=== PATIENT | female | born 1940 | race Caucasian/White ===

== ENCOUNTER → 2016-07-23 | Outpatient (CLI) | payer MEDICARE, BC ==
[~2016-07-23] MED LIST: ADVIL200 M2 PO; ADVIL200 M3 PO; ALBUTEROL MININEB; ALBUTEROL MININEB NEB; ALPRAZOLAM PO; ASPIRIN EC81 M1 PO; BACTRIM DS TABL1 TA1 PO; CEFTIN PO; COMBIVENT U/D3 M3 INH; DULERA 200 MCG/13 GM INH; HYDROCODON-ACE1 EAC9 PO; LEVAQUIN PO; LEVAQUIN750 M1 PO; MULTI VITAMIN1 EACH PO; MULTI-VITAMIN1 TAB PO; OMNICEF300 M1 PO; OXYGEN; PREDNISONE PO; PREDNISONE10 MG/DOSE PO; PROAIR HFA8.5 GM INH; PROAIR INH; REMERON15 MG PO; SPIRIVA18 MCG INH; VITAMIN A PO; VITAMIN C500 M1 PO; VITAMIN E PO; ZOLPIDEM TARTRAT5 M1 PO; ZOLPIDEM TARTRAT5 MG PO
--- NOTE | ~2016-07-23 | MY11 ---
[facility] A Service of [facility] & [facility] / [facility] RADIOLOGY TEXT RESULTS PATIENT: CHIKA MCDOWELL LOCATION: [facility] : 42 UNIT #: [id number] AGE: [address]: Amber Mathew MD SEX: F ORDER DR: [id number] [facility] [address] [facility] [facility]. [place], [place] [address] [id number] O MR#: [id number] Acc #: [id number] NAME: CHIKA MCDOWELL : 1940 SEX: F STUDY DATE/TIME: 07/23/2016 15:09 UNIT: [facility] ROOM: STUDY DESCRIPTION: MY Mammogram Screening Dig Cristóbal Attending Physician: Amber Mathew M.D. Ordering Physician: Amber Mathew M.D. Primary Care Physician: Amber Mathew M.D. MEDICAL IMAGING REPORT This report is preliminary unless electronic signature is present EXAM Bilateral digital screening mammogram with CAD, 07/23/2016 INDICATION 75-year-old female for routine screening. No reported problems and no personal or family history of breast cancer. No surgeries. TECHNIQUE CC and MLO views of the breast were obtained and reviewed with an FDA-approved CAD device. COMPARISON 11/29/2008, 01/02/2208, 12/20/2007 FINDINGS Breast parenchyma is composed of scattered fibroglandular densities. The pattern is unchanged. There are 2 new nodular densities in the 12 o'clock position left breast at middle third depth. 1 measures about 1.2 cm and the second immediately adjacent to the former measures 8.0 mm. These have slightly irregular margins and are associated with some faint calcifications, some of which appear new. Imaging findings are suspicious for malignancy. Suggest further evaluation with spot compression views in the CC and MLO projections and a true lateral view along with targeted ultrasound. There is an 8.0 mm nodular density in the posterior outer hemisphere right breast best seen on the CC projection. This is slightly larger than on comparison studies and should be further evaluated with spot compression and targeted ultrasound as well. A true lateral view on the right would also be helpful for localization purposes. IMPRESSION 1. Abnormal examination. There are 2 new mass-like densities in the STS. [facility] A Service of [facility] & [facility] / [facility] RADIOLOGY TEXT RESULTS PATIENT: CHIKA MCDOWELL LOCATION: [facility] : 42 UNIT #: [id number] AGE: [address]: Amber Mathew MD SEX: F ORDER DR: left breast at about 12 o'clock. This should be further evaluated with additional views and ultrasound as described above. They are suspicious for malignancy. 2. 8.0 mm nodular density in the posterior outer right breast. Additional views and targeted ultrasound also recommended for further assessment given slight interval enlargement compared to prior studies. Patients over the age of 40 are entered into a reminder system with target due date for the next mammogram. A result letter will also be sent to the patient. BIRADS 0 Incomplete: Need Additional Imaging Evaluation and/or Prior Mammograms for Comparison STAT * RESULT Dictated by... Nahid Padilla M.D. THIS IS AN ELECTRONICALLY VERIFIED REPORT Nahid Padilla M.D. at 07/24/2016 5:19 PM Perla TD: 07/24/2016 09:15 JOB #: [id number] MEDICAL IMAGING REPORT Page 1 of 1 COPY
== END | disposition home or self-care (01) ==
LOC: CWCC 15:02
DX: Z12.31 Encounter for screening mammogram for malignant neoplasm of breast (principal); R92.8 Other abnormal and inconclusive findings on diagnostic imaging of breast; N63 Unspecified lump in breast
CPT/HCPCS: G0202

== ENCOUNTER → 2016-08-14 | Outpatient (CLI) | payer MEDICARE, BC ==
--- NOTE | ~2016-08-14 | US17 ---
[facility] A Service of [facility] / [facility] RADIOLOGY TEXT RESULTS PATIENT: CHIKA MCDOWELL LOCATION: [facility] : 42 UNIT #: [id number] AGE: [address]: Amber Mathew MD SEX: F ORDER DR: [id number] [place] [id number] [facility] [place] [facility]. [place], [place] [address] [id number] O MR#: [id number] Acc #: [id number] NAME: CHIKA MCDOWELL : 1940 SEX: F STUDY DATE/TIME: 08/14/2016 13:07 UNIT: [facility] ROOM: STUDY DESCRIPTION: US Breast Bilateral Attending Physician: Amber Mathew M.D. Referring Physician: Amber Mathew M.D. Ordering Physician: Amber Mathew M.D. Primary Care Physician: Amber Mathew M.D. MEDICAL IMAGING REPORT This report is preliminary unless electronic signature is present EXAM Bilateral diagnostic breast ultrasound DATE 08/14/2016 HISTORY Nodular densities on each breast was included on the diagnostic mammogram for which ultrasound was recommended. COMPARISON Mild screening mammogram 07/23/2016. Bilateral diagnostic digital mammogram 08/14/2016. FINDINGS High-grade sonographic imaging was performed of the left breast in the superior hemisphere. At approximately 2 o'clock axis central third, a 2 cm macrolobulated slightly angulated solid appearing mass lesion is seen with areas of acoustic shadowing. Does not appear frankly hypervascular on color Doppler imaging. There is some echo reflectors or microcalcifications within it. Findings are highly suspicious for malignancy and correspond to mammographic finding. In the 9 o'clock axis of the right breast, a benign appearing 7 mm cyst is seen, thought to correspond to mammographic finding. No suspicious solid right breast mass is identified. IMPRESSION BIRADS category 4. Suspicious finding. There is a 2 cm mass in the 2 o'clock axis left breast central third which is highly suspicious for malignancy. Please refer to the diagnostic mammogram report from this same date for full description of mammographic and sonographic findings and recommendations. [facility] A Service of [facility] & [facility] RADIOLOGY TEXT RESULTS PATIENT: CHIKA MCDOWELL LOCATION: [facility] : 42 UNIT #: [id number] AGE: [address]: Amber Mathew MD SEX: F ORDER DR: FRANCISADS: 4 Suspicious abnormality; biopsy should be considered. Dictated by... Oxana Harden M.D. THIS IS AN ELECTRONICALLY VERIFIED REPORT Oxana Harden M.D. at 08/17/2016 8:32 AM JERICHO/lindsey TD: 08/14/2016 15:55 JOB #: [id number] MEDICAL IMAGING REPORT Page 1 of 1 COPY
--- NOTE | ~2016-08-14 | MY6 ---
[facility] A Service of [facility] & [facility] RADIOLOGY TEXT RESULTS PATIENT: CHIKA MCDOWELL LOCATION: [facility] : 42 UNIT #: [id number] AGE: [address]: Amber Mathew MD SEX: F ORDER DR: [id number] [place] [id number] [facility]. [place], [place] [address] [id number] O MR#: [id number] Acc #: [id number] NAME: CHIKA MCDOWELL : 1940 SEX: F STUDY DATE/TIME: 08/14/2016 12:29 UNIT: [facility] ROOM: STUDY DESCRIPTION: MY Mammogram Dx Dig Cristóbal Attending Physician: Amber Mathew M.D. Referring Physician: Amber Mathew M.D. Ordering Physician: Amber Mathew M.D. Primary Care Physician: Amber Mathew M.D. MEDICAL IMAGING REPORT This report is preliminary unless electronic signature is present EXAM Bilateral digital diagnostic mammogram with CAD DATE 08/14/2016 HISTORY Bilateral breast densities on previous screening mammogram FOR which additional diagnostic imaging was recommend. COMPARISON Bilateral screening mammogram 07/23/2016. FINDINGS True ML views obtained of each breast utilizing digital technique and reviewed with an FDA-approved CAD device. Additional extended craniocaudal lateral view was obtained of the right breast. Heterogeneously dense fibroglandular tissue is present bilaterally. Near the 1-2 o'clock axis in the left breast, there is a somewhat bilobed irregularly marginated increased density nodularity which becomes more conspicuous upon spot compression in the CC and MLO plane. Small calcifications are seen in the same vicinity. No additional nodules are identified. In the 9 o'clock axis right breast mid to posterior third, subcentimeter oval well-circumscribed nodule is present. It persists and becomes more conspicuous upon spot compression, but there is no associated architectural distortion or microcalcification. Targeted sonographic imaging was obtained of each breast for diagnostic purposes. In the 2 o'clock axis left breast central third, a microlobulated slightly angulated solid-appearing mass lesion is seen, [facility] A Service of [facility] & [facility] RADIOLOGY TEXT RESULTS PATIENT: CHIKA MCDOWELL LOCATION: [facility] : 42 UNIT #: [id number] AGE: [address]: Amber Mathew MD SEX: F ORDER DR: growing against soft tissue planes. It contains some internal echo reflectors likely representing microcalcifications. It does not appear frankly hypervascular on color Doppler imaging. It is highly suspicious for malignancy and corresponds to mammographic finding. Targeted sonographic imaging of the right breast in the 9 o'clock axis demonstrates a benign appearing 7 mm cyst. This is thought to correspond to the previous ultrasound from 01/02/2008, appears similar to that study. No additional or suspicious right breast nodules are identified. IMPRESSION 1. BIRADS 4. Suspicious abnormality. Biopsy recommended. There is a 2 cm solid mass in the 2 o'clock axis left breast central third which is highly suspicious for malignancy both mammographically and sonographically. It may be technically challenging for the patient to undergo ultrasound-guided core needle biopsy, as she has a difficult time lying down due to her COPD. Breast surgical consultation is recommended, for contemplation of initial surgical excision versus core needle biopsy. The patient is not on blood thinning agents at this time. Simple right breast cyst is noted, no findings suspicious malignancy in the right breast. 2. Findings and recommendations were discussed directly the patient in the presence of her caregiver. Both verbalized understanding. 3. I have personally contacted the it assistant working for Dr. Amber Mathew regarding the major pertinent findings today, 08/14/2016 at 01:37 p.m. Breast surgical consultation can be scheduled by the referring physician's office at the patient's convenience. BIRADS 4. Patients over the age of 40 are entered into a reminder system with target due date for the next mammogram. A result letter will also be sent to the patient. BIRADS: 4 - Suspicious abnormality - Biopsy should be considered Dictated by... Oxana Harden M.D. THIS IS AN ELECTRONICALLY VERIFIED REPORT Oxana Harden M.D. at 08/17/2016 8:32 AM JERICHO/mariola TD: 08/14/2016 15:53 JOB #: [id number] MEDICAL IMAGING REPORT Page 1 of 1 COPY
== END | disposition home or self-care (01) ==
LOC: CMAM 12:01
DX: R92.8 Other abnormal and inconclusive findings on diagnostic imaging of breast (principal); N63 Unspecified lump in breast
CPT/HCPCS: 76641; G0204

== ENCOUNTER → 2016-09-17 | Outpatient (CLI) | payer MEDICARE, BC ==
--- NOTE | ~2016-09-17 | EKG ---
PATIENT: CHIKA MCDOWELL UNIT #: [id number] Ventricular Rate: 76 BPM Atrial Rate: 76 BPM P-R Interval: 112 ms QRS Duration: 54 ms Q-T Interval: 378 ms QTC Calculation(Bezet): 425 ms P [place]: 5 degrees Calculated R [place]: -2 degrees Calculated T [place]: 9 degrees Diagnosis Line: Normal sinus rhythm Diagnosis Line: Normal ECG Diagnosis Line: When compared with ECG of 04-JUL-2015 10:38, Diagnosis Line: Nonspecific T wave abnormality now evident in Diagnosis Line: Inferior leads Diagnosis Line: Confirmed by JERRY MACEDO MD ([id number]) on Diagnosis Line: 09/18/2016 6:48:36 AM INTERPRETING RON FLOREZ
--- NOTE | ~2016-09-17 | CR63 ---
[facility] A Service of [facility] & [facility] / [facility] RADIOLOGY TEXT RESULTS PATIENT: CHIKA MCDOWELL LOCATION: [facility] : 42 UNIT #: [id number] AGE: [address]: Steve Corley MD SEX: F ORDER DR: [id number] [facility] [address] [place], [place] [address] [id number] O MR#: [id number] Acc #: [id number] NAME: CHIKA MCDOWELL : 1940 SEX: F STUDY DATE/TIME: 09/17/2016 14:57 UNIT: [facility] ROOM: STUDY DESCRIPTION: CR Chest 2 View Attending Physician: Steve Corley Jr., M.D. Ordering Physician: Steve Corley Jr., M.D. Primary Care Physician: Amber Mathew M.D. MEDICAL IMAGING REPORT This report is preliminary unless electronic signature is present EXAM Two view chest 09/17/2016. HISTORY A 75-year-old woman, preop clearance for left mastectomy. [place] node resection. COMPARISON STUDIES Chest 07/08/2015, chest CT 04/03/2015 FINDINGS Two-view chest exam demonstrates normal heart size. Aorta is mildly ectatic. Patient is rotated shifting the mediastinum from left to right. Lungs are hyperinflated. I see no infiltrates. There is a [place] hernia noted medial right posterior hemidiaphragm. IMPRESSION Generalized pulmonary hyperinflation consistent with COPD. [place] hernia in the right medial posterior hemithorax. No acute chest finding. Dictated by... Maykel Chadwick M.D. THIS IS AN ELECTRONICALLY VERIFIED REPORT Maykel Chadwick M.D. at 09/18/2016 11:59 AM ARAMIS/alex TD: 09/18/2016 11:37 JOB #: [id number] MEDICAL IMAGING REPORT Page 1 of 1 COPY
[2016-09-17 14:59] LABS: HEMATOCRIT 43.1 % (35.0-45.0); MEAN CORPUSCULAR HEMOGLOBIN 29.4 PG (28-34); MEAN CORPUSCULAR HGB CONC 32.6 g/dL (30-36); MEAN PLATELET VOLUME 8.8 FL (6.5-11.5); RED BLOOD COUNT 4.78 X10e (3.90-5.30); RED CELL DISTRIBUTION WIDTH 13.2 % (11.0-15.5); WHITE BLOOD COUNT 11.4 X10e3 (4.0-10.5)
[2016-09-17 15:20] LABS: BUN/CREATININE RATIO 17.5; CALCIUM SERUM 9.5 mg/dL (8.4-10.2); CREATININE SERUM 0.8 mg/dL (0.6-1.4); GLOM FILT RATE Estimated 73.2 mL/min (>60); POTASSIUM 4.2 mmol/L (3.5-5.1)
== END | disposition home or self-care (01) ==
LOC: CAMB 13:36
PROVIDERS: Surgery
DX: Z01.818 Encounter for other preprocedural examination (principal); R91.8 Other nonspecific abnormal finding of lung field
CPT/HCPCS: 36415; 71020; 80048; 85027; 93005

== ENCOUNTER 2016-09-24 09:29 | Inpatient (IN) | payer MEDICARE, BC ==
--- NOTE | ~2016-09-24 | CO ---
Unit #: [id number] #: [id number] Patient: CHIKA MCDOWELL [id number] [address] [place], [place] [address] [id number] I MR#: [id number] NAME: CHIKA MCDOWELL ROOM: 474 Age: 76 Sex: F Admission Date: 09/24/2016 : 1940 Attending Physician: Steve Corley Jr., M.D. Primary Care Physician: Amber Mathew M.D. Requesting Physician: Steve Corley Jr., M.D. CONSULTATION REPORT HISTORY OF PRESENT ILLNESS Ms. Mcdowell is a 75-year-old female with stage 2 COPD who presented for elective left mastectomy. This was done on September 24, 2016. She was not on the ventilator postop. She apparently was noted to have some shortness of breath and maybe even a little bit of stridor today. Her is in the room and says that she gets a little short of breath and has some wheezing when she gets up and moves around She had a "dry cough" preop. She was not breathing any worse than normal preop. She uses Dulera or Symbicort b.i.d., and she uses mini-nebs four times a day scheduled. She has not smoked in about seven to eight years. PAST MEDICAL HISTORY 1. Otherwise significant for her COPD. Back in 2014, FEV1 was 1.03 or 52% of predicted. A CAT scan in the past has shown emphysema changes. 2. History of cognition issues and aphasia. This has actually been going on since about 2014, and she has seen a neurologist for this. 3. Hyperlipidemia. 4. Insomnia. MEDICATIONS ON ADMISSION 1. Spiriva 1 capsule inhaled daily. 2. Dulera 200/5 at 2 puffs b.i.d. 3. Multivitamins daily. 4. Vitamin C 500 mg daily. 5. Albuterol mini-nebs q.i.d., although they told me it was DuoNebs. 6. ProAir 2 puffs q.i.d. p.r.n. 7. Remeron 15 mg p.o. at bedtime. 8. Aspirin 81 mg p.o. daily. 9. Vitamin A 8000 units daily. 10. Vitamin E daily. 11. Oxygen. She was wearing it 2 L almost all the time at home. ALLERGIES No known drug allergies. SOCIAL HISTORY She did smoke, but she quit approximately seven to eight years ago. FAMILY HISTORY Nobody with lung disease. REVIEW OF SYSTEMS She has had some trouble with speaking for a long time. She has generalized weakness. She does have a little trouble with balance Unit #: [id number] #: [id number] Patient: CHIKA MCDOWELL according to her . No leg swelling and no skin complaints. All other systems are negative except as mentioned. PHYSICAL EXAMINATION GENERAL: On exam, she presents as an elderly female in no acute distress. VITAL SIGNS: Temperature is 98.5, pulse 83, respirations 18, blood pressure 159/79, and saturations 99% on 2 L nasal cannula. NECK: Without adenopathy. LUNGS: Breathing is not labored. She had clear breath sounds bilaterally. HEART: Regular. ABDOMEN: Soft. Bowel sounds are present. EXTREMITIES: Without edema. NEUROLOGICALLY: She is awake and alert. She has a little bit of dysarthria which is not unusual for her. SKIN: Evaluation reveals that she does have a bandage around her chest. I did not take it off to look at her surgical wound. DIAGNOSTIC STUDIES LABORATORY: Blood gas was done on 2 L with a pH of 7.46, PCO2 of 42, and PO2 of 75. Serum chemistries show BUN 14, creatinine 0.8, and glucose 121. White blood cell count 8.9, hemoglobin and hematocrit 10.8 and 33, and 257,000 platelets. IMAGING: Chest x-ray to my exam reveals some increased interstitial markings in general, but I really did not see any definite infiltrate. IMPRESSION 1. Chronic obstructive pulmonary disease actually stable postoperatively. 2. Postoperative for a left mastectomy. 3. History of some type of neurologic issue that I am not sure we have a good diagnosis for. PLAN I would continue mini-nebs scheduled postop, although probably at home she can use the mini-nebs more on an as-needed basis. I would indeed continue the Dulera. If she does not have stridor at this time, two liters is more than adequate. Thank you very much for allowing me to participate in the care of this patient. Dictated by... Honorio ArndtK/am TD: 09/27/2016 14:56 JOB #: [id number] Unit #: [id number] #: [id number] Patient: CHIKA MCDOWELL Brian CONSULTATION REPORT Page 1 of 1 X Arben Vaughn MD CONSULTATION REPORT
--- NOTE | ~2016-09-24 | CR63 ---
[facility] A Service of [facility] RADIOLOGY TEXT RESULTS PATIENT: CHIKA MCDOWELL LOCATION: [facility] : 42 UNIT #: [id number] AGE: [address]: Steve Corley MD SEX: F ORDER DR: [id number] [facility] [address] [facility] [place], [place] [address] [id number] I MR#: [id number] Acc #: [id number] NAME: CHIKA MCDOWELL. : 1940 SEX: F STUDY DATE/TIME: 09/26/2016 9:12 UNIT: [facility] ROOM: [facility] STUDY DESCRIPTION: CR Chest 2 View Attending Physician: Steve Corley Jr., M.D. Ordering Physician: Steve Corley Jr., M.D. Primary Care Physician: Amber Mathew M.D. MEDICAL IMAGING REPORT This report is preliminary unless electronic signature is present EXAM Two-view chest, 09/26/2016. INDICATIONS 76-year-old female with shortness of air. Breast cancer. Left-sided breast cancer. Symptoms began today. Hypertension. TECHNIQUE Frontal chest compared with 09/17/2016. FINDINGS The patient has rotated to the right. Operative changes of left mastectomy are present. There are radiopaque drains projecting over the left hemithorax. Cardiac silhouette borderline in size. There is pulmonary hyperinflation. Probable atelectasis or less likely faint infiltrate in the right lung base. No pneumothorax. No significant effusion. IMPRESSION 1. Faint atelectasis or infiltrate in the right lung base. Underlying COPD. Postop changes of left mastectomy. Dictated by... Nahid Padilla M.D. THIS IS AN ELECTRONICALLY VERIFIED REPORT Nahid Padilla M.D. at 09/27/2016 8:44 AM Hank TD: 09/26/2016 21:01 JOB #: [id number] [facility] A Service of [facility] RADIOLOGY TEXT RESULTS PATIENT: CHIKA MCDOWELL LOCATION: [facility] 474- : 42 UNIT #: [id number] AGE: [address]: Steve Corley MD SEX: F ORDER DR: MEDICAL IMAGING REPORT Page 1 of 1 COPY
--- NOTE | ~2016-09-24 | DS ---
Unit #: [id number] #: [id number] Patient: CHIKA MCDOWELL [id number] [address] [place], [place] [address] [id number] I MR#: [id number] NAME: CHIKA MCDOWELL ROOM: [facility] Age: 76 Sex: F Admission Date: 09/24/2016 : 1940 Discharge Date: 09/27/2016 Attending Physician: Steve Corley Jr., M.D. Primary Care Physician: Amber Mathew M.D. DISCHARGE SUMMARY ADMITTING AND FINAL DIAGNOSES 1. Adenocarcinoma of the left breast. 2. Status post cerebrovascular accident with an expressive aphasia. 3. Also chronic obstructive pulmonary disease and postop pulmonary congestion. BRIEF SUMMARY The patient is a 76-year-old white female who recently had a needle biopsy of the left breast of mass that showed evidence of adenocarcinoma. She was brought in at this time for mastectomy with [place] node biopsy. Exam reveals a small mass palpable in the 12 o'clock position on the left breast. There were no palpable axillary enlarged lymph nodes. She does have an expressive aphasia from previous CVA. Admission laboratory values basically within normal limits. HOSPITAL COURSE The patient was brought in and underwent left mastectomy with [place] node biopsy. At present her pathology report is still pending. She did have some pulmonary congestion and was seen by Dr. Vaughn postop and treated with mini-nebs and appropriate oral medications and inhalers. At present, she has no pulmonary problems noted. She is tolerating a diet, ambulating. Wound is clean and healing well with no evidence of any problem with the flaps. Drains have been draining approximately 70 to 100 mL over the past 24 hours. The plan will be to discharge the patient home. She did drop her hemoglobin in the range of 10.5 but that has been steady with no evidence of any further drop of her hemoglobin. DISCHARGE MEDICATIONS 1. She will resume all of her home medications. 2. Taking [place] 7.5 mg/325 one or two p.o. q.6 h. p.r.n. pain. 3. She will be taking pulmonary meds per Dr. Vaughn. 4. Will have her on Levaquin 500 mg p.o. q. a.m. for the next 8 days. DISCHARGE INSTRUCTIONS Her family will be calling for an appointment for Wednesday for removal of her drains and further followup and she will continue her pulmonary followup with Dr. Vaughn in the office in the future. She will be on a regular home diet and limited lifting and keeping her wound clean and dry. Dictated by... Steve Corley Jr., M.D. Unit #: [id number] #: [id number] Patient: JEREMIASCHIKA R JMB/david TD: 09/29/2016 16:21 JOB #: [id number] DISCHARGE SUMMARY Page 1 of 1 X Steve Corley MD X DISCHARGE SUMMARY
--- NOTE | ~2016-09-24 | OR ---
Unit #: [id number] #: [id number] Patient: CHIKA MCDOWELL [id number] [address] [place], [place] [address] [id number] MR#: [id number] NAME: CHIKA MCDOWELL ROOM: 474 Date of Procedure: 09/24/2016 Admission Date: 09/24/2016 Surgeon: Steve Corley Jr., M.D. : 1940 Attending Physician: Steve Corley Jr., M.D. Primary Care Physician: Amber Mathew M.D. OPERATIVE REPORT INDICATIONS FOR PROCEDURE The patient is a 75-year-old white female, who recently had percutaneous biopsy on her left breast, where she had a small mass and this was noted to be adenocarcinoma with a positive biopsy. She is brought in this time for left mastectomy with sentinel node biopsy. She is being given options of lumpectomy versus this, but has elected to go with a mastectomy. She understands the procedure including the risks, including that of infection and poor healing and recurrence of her cancer, and consents. PREOPERATIVE DIAGNOSIS Adenocarcinoma of the left breast. POSTOPERATIVE DIAGNOSIS Adenocarcinoma of the left breast, noting negative sentinel node x2. ANESTHESIA General with endotracheal intubation. PROCEDURE PERFORMED Left mastectomy with sentinel node biopsy and frozen section. DESCRIPTION OF PROCEDURE The patient was positioned in supine position. After being anesthetized, she was prepped and draped in routine fashion for left mastectomy. An elliptical incision was made around the left breast with flaps being developed superior and inferior down to the fascia of the muscle. The wound was carried over to the axillary area and using the Neoprobe scanner, there were 2 lymph nodes that seen fatty that picked up the significant signal and these were both removed after hemoclipping vessels around them and dividing them. They showed no evidence of cancer on frozen section. After the breast was removed from the chest wall and over to the latissimus dorsi laterally, it was completely removed with a #10 blade scalpel. Hemostasis was achieved with the Bovie cautery and the wound was irrigated with sterile water and after hemostasis was again achieved with the Bovie cautery and several hemoclips, two 10 mm Rashad-Garcia drains were placed, one in the axillary area and the other under the flaps. Subcutaneous tissue was approximated with interrupted 3-0 Vicryl sutures. Skin edges approximated with stainless-steel skin clips and skin stapling device. Sterile compressive dressing was applied externally. Estimated blood loss less than 100 mL. The patient received less than 2000 mL crystalloid solution during the procedure. Sponges and instrument counts were correct x3. No drains used. No complications. Unit #: [id number] #: [id number] Patient: CHIKA MCDOWELL The patient was taken to the recovery room with stable vital signs in satisfactory condition. Dictated by... Steve Corley Jr. MFede. YARITZA/nolan TD: 09/24/2016 18:15 JOB #: [id number] OPERATIVE REPORT Page 1 of 1 X Steve Corley MD X PROCEDURE OPERATIVE NOTE
--- NOTE | ~2016-09-24 | NM79 ---
[facility] A Service of [facility] & [facility] RADIOLOGY TEXT RESULTS PATIENT: CHIKA MCDOWELL LOCATION: [facility] [id number] : 42 UNIT #: [id number] AGE: [address]: Steve Corley MD SEX: F ORDER DR: [id number] [facility] [address] [place], [place] [address] [id number] MR#: [id number] Acc #: [id number] NAME: CHIKA MCDOWELL : 1940 SEX: F STUDY DATE/TIME: 09/24/2016 10:00 UNIT: [id number] ROOM: [id number] STUDY DESCRIPTION: NM [place] Node Inj Attending Physician: Steve Corley Jr., M.D. Ordering Physician: Steve Croley Jr., M.D. Primary Care Physician: Amber Mathew M.D. MEDICAL IMAGING REPORT This report is preliminary unless electronic signature is present EXAM [place] node injection on the left, 09/24/2016 INDICATIONS Left-sided breast cancer. Mastectomy and sentinel node resection scheduled for today. FINDINGS The patient's prior imaging studies and pathology results were reviewed. She was deemed adequate candidate for the procedure. The procedure was explained to the patient. She had been previously consented for the procedure by the surgical team. The consent form was signed and on the chart prior to the procedure. The consent form was signed by the patient's power of c software engineer. The patient also gave oral consent to proceed. Prior to the procedure a "time-out" protocol was also followed to confirm patient identity and procedure details. The left breast was wiped with a sterile alcohol pad x3. Using a periareolar approach, 3 separate injections of a total of 571 microcuries of technetium 99m filtered sulfur colloid was injected from the 1 o'clock through the 3 o'clock positions. There were no immediate post procedure complications. The patient tolerated the procedure well. An appropriate postprocedure note was left on the patient's chart. IMPRESSION Successful sentinel node injection on the left. No immediate postprocedure complications. Dictated by... Nahid L. Yewell, M.D. THIS IS AN ELECTRONICALLY VERIFIED REPORT Nahid Padilla M.D. at 09/24/2016 5:05 PM [facility] A Service of [facility] & [facility] RADIOLOGY TEXT RESULTS PATIENT: CHIKA MCDOWELL LOCATION: [place] [address] : [birth year] UNIT #: [id number] AGE: [address]: Steve Corley MD SEX: F ORDER DR: Lynn TD: 09/24/2016 15:48 JOB #: [id number] MEDICAL IMAGING REPORT Page 1 of 1 COPY
[~2016-09-24 09:29] MED LIST changes: -HYDROCODON-ACE1 EAC9 PO; -LEVAQUIN PO
[2016-09-25 03:22] LABS: HEMATOCRIT 33.8 % (35.0-45.0); HEMOGLOBIN 10.9 gm/dL (12.0-16.0); MEAN CELL VOLUME 90.9 FL (83-96); MEAN CORPUSCULAR HEMOGLOBIN 29.3 PG (28-34); MEAN CORPUSCULAR HGB CONC 32.2 g/dL (30-36); MEAN PLATELET VOLUME 9.5 FL (6.5-11.5); RED BLOOD COUNT 3.72 X10e (3.90-5.30); RED CELL DISTRIBUTION WIDTH 13.1 % (11.0-15.5); WHITE BLOOD COUNT 12.5 X10e3 (4.0-10.5)
[2016-09-25 03:52] LABS: BILIRUBIN,TOTAL 0.6 mg/dL (0.2-2.0); BUN/CREATININE RATIO 17.5; CALCIUM SERUM 8.3 mg/dL (8.4-10.2); CREATININE SERUM 0.8 mg/dL (0.6-1.4); GLOM FILT RATE Estimated 72.7 mL/min (>60); POTASSIUM 4.5 mmol/L (3.5-5.1); PROTEIN TOTAL SERUM 5.3 g/dL (6.0-8.3)
[2016-09-26 03:08] LABS: HEMOGLOBIN 10.8 gm/dL (12.0-16.0); MEAN CELL VOLUME 90.4 FL (83-96); MEAN CORPUSCULAR HEMOGLOBIN 29.5 PG (28-34); MEAN CORPUSCULAR HGB CONC 32.6 g/dL (30-36); MEAN PLATELET VOLUME 9.1 FL (6.5-11.5); RED BLOOD COUNT 3.66 X10e (3.90-5.30); RED CELL DISTRIBUTION WIDTH 13.2 % (11.0-15.5); WHITE BLOOD COUNT 8.9 X10e3 (4.0-10.5)
[2016-09-26 10:56] LABS: ARTERIAL BLD GAS O2 SATURATION 95.1 % (90.0-100.0); ARTERIAL BLOOD GAS CARBOXY HB 0.8 %sat (0.0-9.0); ARTERIAL BLOOD GAS HCO3 30.2 mmol/L; ARTERIAL BLOOD GAS MET HB 0.7 %sat (0.0-2.0); ARTERIAL BLOOD GAS PCO2 42.3 mmHg (35.0-45.0); ARTERIAL BLOOD GAS pH 7.462 (7.350-7.450)
[2016-09-26 10:57] LABS: ARTERIAL BLOOD GAS ALLEN TEST NORMAL; ARTERIAL BLOOD GAS ART SITE RIGHT RADIAL; ARTERIAL BLOOD GAS DELIVERY NASAL CANNULA; ARTERIAL BLOOD GAS PO2 75.6 mmHg (80.0-100); ARTERIAL DRAW? YES
[2016-09-27] MEDS ORDERED: HYDROCODON-ACE1 EAC9 PO (11:55)
[2016-09-27] MEDS ORDERED: LEVAQUIN PO (11:56)
== END 2016-09-27 13:27 | disposition home or self-care (01) | DRG 581 ==
LOC: CSUR 09:29 → CNUC 10:00 → CSUR 11:30 → CPACUOF 13:00 → CSUR 14:00 → CPACUOF 14:00 → C4C 16:40 → CPACUOF 16:40 → C4C 09-27 13:27
PROVIDERS: Surgery
PROC: 0HTU0ZZ Resection of Left Breast, Open Approach (ICD-10-PCS; principal; 2016-09-24 11:30)
PROC: 07B60ZX Excision of Left Axillary Lymphatic, Open Approach, Diagnostic (ICD-10-PCS; 2016-09-24 11:30)
DX: C50.912 Malignant neoplasm of unspecified site of left female breast (principal); Z99.81 Dependence on supplemental oxygen; J44.9 Chronic obstructive pulmonary disease, unspecified; I69.320 Aphasia following cerebral infarction; G47.30 Sleep apnea, unspecified; Z87.891 Personal history of nicotine dependence; E78.5 Hyperlipidemia, unspecified; M19.90 Unspecified osteoarthritis, unspecified site; Z79.82 Long term (current) use of aspirin; Z83.3 Family history of diabetes mellitus; Z81.1 Family history of alcohol abuse and dependence; Z82.61 Family history of arthritis
CPT/HCPCS: 36600; 71020; 80053; 82803; 85027; 88305; 88307; 88331; 88332; 88342; 88344; 88360; 94010; 94640; 94664; 94760; A9541; J0690; J1100; J1650; J1885; J2270; J2765; Q9968